=== PATIENT | male | born 1985 | race Two or more races ===

== ENCOUNTER 2017-05-28 10:59 | Emergency (ER) | payer SELFPAY ==
[~2017-05-28] VITALS: Ht 162.6 cm; Wt 63.5 kg
[2017-05-28] MEDS ORDERED: Cephalexin 500mg cap ORAL ONE (11:30)
[2017-05-28] MEDS ORDERED: Norco 5mg/325mg tab ORAL ONE (11:30)
[2017-05-28] MEDS ORDERED: Tetanus/Diptheria/Pertussis Vaccine 0.5ml Syr IM ONE (11:30)
[2017-05-28] MEDS ORDERED: Bacitracin Oint UD TOPIC ONE (12:30)
[2017-05-28] MEDS ORDERED: Lidocaine 1% MPF 10mg/ml 5ml INJ ONE (12:30)
--- NOTE | 2017-05-28 12:46 | Diagnostic Imaging Report ---
Indication: PAIN Technique: 3 views left hand Comparison: none Findings: No acute fractures. No dislocations. Joint spaces are preserved. Impression: Negative
[2017-05-28] MEDS ORDERED: KEFLEX500 MG ORAL (13:14)
[2017-05-28] MEDS ORDERED: IBUPROFEN600 MG ORAL (13:14)
[2017-05-28 13:23] VITALS: BP 122/74
--- NOTE | 2017-05-28 14:55 | Diagnostic Imaging Report ---
Indications:PAIN elbow pain status post trauma Technique: Three or 4 views of the left elbow Comparison: None Findings:No acute fractures. No dislocations. There is a small spur coming off of the coronoid process Impression:No acute process
--- NOTE | 2017-05-30 07:41 | Emergency Room Report ---
History of Present Illness General Chief Complaint: Laceration Source: Patient Present Illness HPI Patient is a 32-year-old male who presented after increased pain to his thumb after laceration. Patient reported falling onto a metal object. He reports having no recent tetanus vaccine. The patient initially reported some left elbow pain. He denied any numbness tingling. Allergies: Coded Allergies: No Known Allergies (Unverified , 05/28/17) Nursing Documentation-[facility] Past Medical History: No Stated History Physical Exam Vital Signs Date Time Temp Pulse Resp B/P (MAP) Pulse Ox O2 Delivery O2 Flow Rate FiO2 05/28/17 11:04 97.5 58 18 106/60 97 Room Air Procedures Laceration/Wound Repair Laceration/Wound Repair : Consent: Verbal Wound Location: upper extremity Wound's Depth, Shape: flap Wound Length (cm): 1 Wound Explored: clean Betadine Prep?: Yes Anesthesia: 1% Lidocaine Volume Anesthetic (ccs): 2 Wound Debrided: minimal Wound Repaired With: sutures Suture Size/Type: 5:0 Number of Sutures: 3 Layer Closure?: No Splint Applied?: Yes Patient Tolerated: Well Complications: None Medical Decision Making Diagnostic Impression: Primary Impression: Laceration ER Course Patient presented for laceration. Differential diagnoses included foreign body , nerve injury, arterial injury among others. Patient's benign exam and does not appear to require any laboratory testing at this time. X-ray imaging of the left hand 3 views interpreted by radiology showed normal bony alignment without evident foreign body or fracture. X-ray left elbow 3 views read by radiologist showed normal bony alignment without evident fracture Patient's wound was irrigated and sutured by physician assistant professor of physics. Last Vital Signs Date Time Temp Pulse Resp B/P (MAP) Pulse Ox O2 Delivery O2 Flow Rate FiO2 05/28/17 13:23 79 18 122/74 99 Room Air 05/28/17 13:23 97.9 Status: improved Disposition: HOME, SELF-CARE Condition: Improved Scripts Ibuprofen* (MOTRIN*) 600 Mg Tablet 600 MG ORAL Q8H Y for For Pain, #30 TAB 0 Refills Prov: Tray Domingo 05/28/17 Cephalexin* (KEFLEX*) 500 Mg Capsule 500 MG ORAL Q6H, #28 CAP 0 Refills Prov: Tray Domingo 05/28/17 Patient Instructions: Laceration Care, Adult Tray Domingo May 30, 2017 07:41
== END 2017-05-28 13:23 | disposition home or self-care (01) ==
LOC: EMR 11:45
DX: S61.012A Laceration without foreign body of left thumb without damage to nail, initial encounter (principal); W19.XXXA Unspecified fall, initial encounter; Y93.9 Activity, unspecified; Y99.9 Unspecified external cause status; Z23 Encounter for immunization
CPT/HCPCS: 90471; 90715; 99284

== ENCOUNTER 2017-08-17 18:58 | Emergency (ER) | payer SELFPAY ==
[~2017-08-17] VITALS: Ht 170.2 cm; Wt 70.3 kg
[~2017-08-17 18:58] MED LIST: IBUPROFEN600 MG ORAL; KEFLEX500 MG ORAL
--- NOTE | 2017-08-17 19:24 | Emergency Room Report ---
History of Present Illness General Chief Complaint: Upper Extremity Injury Source: Patient Present Illness HPI The patient is a 32-year-old male presenting for right arm pain. He states that this has been on-and-off for the past year. He was seen at another facility one month prior and he was told he has radiculopathy. He was given some medications but is unsure of the names. He states that they were unsuccessful for treating the pain. It is said to be an 8/10 dull ache which occasionally starts at the right shoulder and radiates down to the right wrist. Pain is primarily at the right wrist. Worse with movement and touch. She is also noticed some swelling to this area recently. He denies recent injury but does admit to a fracture of the wrist years prior. He denies surgery to the area. He denies any other symptoms including fever, chills, rash, numbness Allergies: Coded Allergies: No Known Allergies (Unverified , 05/28/17) Patient History Past Medical History: see triage record Pertinent Family History: none Reviewed Nursing Documentation: PMH: Agreed, PSxH: Agreed Nursing Documentation-PMH Past Medical History: No Stated History Review of Systems All Other Systems: negative except mentioned in HPI Physical Exam Vital Signs Date Time Temp Pulse Resp B/P (MAP) Pulse Ox O2 Delivery O2 Flow Rate FiO2 08/17/17 19:09 97.9 82 16 116/59 97 Room Air Sp02 EP Interpretation: reviewed, normal General Appearance: no apparent distress, alert, GCS 15, non-toxic Head: normocephalic, atraumatic Eyes: bilateral eye normal inspection, bilateral eye PERRL ENT: hearing grossly normal, normal pharynx, no angioedema, normal voice Musculoskeletal: normal range of motion, tender - R wrist Neurologic: alert, oriented x3, responsive, motor strength/tone normal, sensory intact, speech normal Psychiatric: judgement/insight normal, memory normal, mood/affect normal, no suicidal/homicidal ideation Skin: normal color, no rash, warm/dry, well hydrated Medical Decision Making PA Attestation Dr. Craig is my supervising physician. Patient management was discussed with my supervising physician Diagnostic Impression: Primary Impression: Wrist pain, right Additional Impression: Radiculopathy Qualified Codes: M54.10 - Radiculopathy, site unspecified ER Course The patient is a 32-year-old male presenting for right arm pain Ddx considered include but not limited to radiculopathy, sprain/strain, fracture , contusion PE: NAD Neck is soft and supple. No midline tenderness or step-offs. Full active range of motion intact. Full active range of motion intact at the shoulder and elbow. Right wrist: full AROMI. There is some tenderness to palpation over the ventral aspect. No obvious deformity. Skin is warm and dry Refill less than 2 seconds X-ray of the right wrist unremarkable Cures report shows no prescription in past 6 months The patient will be discharged home with pain medication and needs to followup with his primary doctor Other X-Ray Diagnostic Results Other X-Ray Diagnostic Results : X-Ray ordered: R wrist # of Views/Limited Vs Complete: 3 View Indication: Pain EP Interpretation: Yes PA Xray: Interpretation reviewed, by supervising MD, and agrees with findings. Interpretation: no dislocation, no soft tissue swelling, no fractures Impression: No acute disease Electronically Signed by: Daniel Garner PA-C Last Vital Signs Date Time Temp Pulse Resp B/P (MAP) Pulse Ox O2 Delivery O2 Flow Rate FiO2 08/17/17 19:09 97.9 82 16 116/59 97 Room Air Status: improved Disposition: HOME, SELF-CARE Condition: Improved Scripts Hydrocodone Bit/Acetaminophen 5-325* (NORCO 5-325 TABLET*) 1 Each Tablet 1 TAB ORAL Q6HR Y for For Pain, #10 TAB Prov: DANIEL GARNER P.A. 08/17/17 Ibuprofen* (MOTRIN*) 600 Mg Tablet 600 MG ORAL Q8H Y for For Pain, #30 TAB 0 Refills Prov: DANIEL GARNER P.A. 08/17/17 DANIEL GARNER P.ADori Aug 17, 2017 19:24
[2017-08-17 19:40] VITALS: BP 116/59
[2017-08-17] MEDS ORDERED: IBUPROFEN600 MG ORAL (20:16)
[2017-08-17] MEDS ORDERED: NORCO 5-325 TA1 EAC1 ORAL (20:16)
[2017-08-17 20:29] VITALS: BP 122/64
--- NOTE | 2017-08-20 11:02 | Diagnostic Imaging Report ---
Clinical Indication:PAIN Technique: 3 views of the right wrist Comparison: None Findings: No acute fractures. No dislocations. Ossific density or densities projected adjacent to the ulnar styloid, may represent small foci of heterotopic ossification, unfused ossification centers, or sequela of old injury. There is equivocal slight dorsal soft tissue swelling The joint spaces are preserved Impression: No acute bony trauma
== END 2017-08-17 20:30 | disposition home or self-care (01) ==
LOC: EMR 19:41
DX: M54.10 Radiculopathy, site unspecified (principal); M25.531 Pain in right wrist
CPT/HCPCS: 99283

== ENCOUNTER 2018-03-08 19:37 | Emergency (ER) | payer SELFPAY ==
[~2018-03-08] VITALS: Ht 170.2 cm; Wt 63.5 kg
[~2018-03-08 19:37] MED LIST changes: +NORCO 5-325 TA1 EAC1 ORAL
[2018-03-08] MEDS ORDERED: NKM (20:00)
[2018-03-08 20:21] VITALS: BP 107/68
[2018-03-08] MEDS ORDERED: Methocarbamol 500mg tab ORAL ONE (20:30)
[2018-03-08] MEDS ORDERED: Tylenol #3 tab (300mg/30mg) ORAL ONE (20:30)
[2018-03-08] MEDS ORDERED: ROBAXIN500 MG PO (20:37)
[2018-03-08] MEDS ORDERED: TYLENOL EXTRA500 MG ORAL (20:37)
[2018-03-08] MEDS ORDERED: LIDOCAINE700 M1 TP (20:37)
--- NOTE | 2018-03-08 20:38 | Emergency Room Report ---
History of Present Illness General Chief Complaint: Back Pain-No Injury Source: Patient Present Illness HPI 32-year-old male patient presents to the ER complaining of mid back pain radiating down his arms. Reports symptoms began last night.. Denies history of injury or trauma. 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 reports pain numbness in arms during this time, states it happens intermittently. Reports a history of similar symptoms, has been told that his radiculopathy. Denies fever, chest pain, shortness breath, abdominal pain. Denies pain radiating down back. Denies history of IV drug use. Denies history of kidney stones. Denies dysuria , hematuria, bowel or bladder incontinence. Denies other symptoms. Denies history of stroke. Has not followed up with PCP or specialist for hx of symptoms in the past. Allergies: Coded Allergies: No Known Allergies (Unverified , 05/28/17) Patient History Past Medical History: see triage record Reviewed Nursing Documentation: PMH: Agreed; PSxH: Agreed Nursing Documentation-PMH Past Medical History: No Stated History Review of Systems All Other Systems: negative except mentioned in HPI Physical Exam Vital Signs Date Time Temp Pulse Resp B/P (MAP) Pulse Ox O2 Delivery O2 Flow Rate FiO2 03/08/18 19:57 98.1 80 20 107/68 95 98.1 Sp02 EP Interpretation: reviewed, normal General Appearance: well appearing, no apparent distress, alert, GCS 15, non- toxic Head: normocephalic, atraumatic Eyes: bilateral eye normal inspection, bilateral eye PERRL, bilateral eye EOMI ENT: hearing grossly normal, normal pharynx, no angioedema, normal voice, uvula midline, moist mucus membranes Neck: full range of motion Respiratory: lungs clear, normal breath sounds, no rhonchi, no respiratory distress, no accessory muscle use, no wheezing, speaking full sentences Cardiovascular #1: regular rate, rhythm, no edema Cardiovascular #2: 2+ radial (R), 2+ radial (L) Musculoskeletal: back normal, digits/nails normal, gait/station normal, normal range of motion, non-tender, other - no bony depression, negative adson, able to make fists, tender - lateral thoracic spine Neurologic: alert, oriented x3, responsive, motor strength/tone normal, SLR negative, sensory intact, cerebellar normal, normal gait, speech normal Psychiatric: mood/affect normal Skin: no rash Medical Decision Making PA Attestation Dr. Caldwell is my supervising Physician whom patient management has been discussed with. Diagnostic Impression: Primary Impression: Back pain ER Course Pt presents to ED c/o back pain. DDX considered but are not limited to sprain, strain, cauda equina. Low suspicion for cauda equina, no bowel or bladder incontinence or retention. VITAL SIGNS are WNL, patient is afebrile Ordered medication. ER COURSE: Pain medication provided. Patient requested Vicodin medication, will provide patient with Tylenol #3 in ER for pain. followup with PCP for further pain management. no focal neural deficits, cranial nerves intact as tested, no bony tenderness, able to ambulate independently without difficulty. no spinous process depression, no history of trauma, does not require imaging at this time. 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 Will provide patient with treatment ER. Cures report reviewed. Seen and evaluated by Dr. Caldwell, agrees with treatment and plan. Work note provided. Followup with pain management and/or PT. Request referral from PCP. Followup with PCP for further MRI and/or CT imaging as needed. DISCHARGE: -Rx provided for Tylenol -Rx provided for Lidocaine patch -Rx provided for Robaxin. SE may cause drowsiness, do not take prior to drinking , driving, or operating heavy machinery. At this time pt. is stable for d/c to home. At this time patient is resting comfortably, in no acute distress, nontoxic appearing, smiling and talking without difficulty. Will provide printed patient care instructions, and any necessary prescriptions. Patient instructed to follow with primary care provider for further treatment and referral as needed. Care plan and follow up instructions have been discussed with the patient prior to discharge. Patient reports understanding and agreement to treatment plan. Patient questions asked and answered. ER precautions given, patient instructed to return to ER immediately for any new or worsening of symptoms. - Please note that this Emergency Department Report was dictated using [employer] installer technology software, occasionally this can lead to erroneous entry secondary to interpretation by the dictation equipment. Last Vital Signs Date Time Temp Pulse Resp B/P (MAP) Pulse Ox O2 Delivery O2 Flow Rate FiO2 03/08/18 19:57 98.1 80 20 107/68 95 98.1 Disposition: HOME, SELF-CARE Condition: Stable Scripts Methocarbamol* (ROBAXIN*) 500 Mg Tablet 500 MG PO TID, #21 TAB 0 Refills Prov: Shelton Warren 03/08/18 Acetaminophen* (TYLENOL EXTRA STRENGTH*) 500 Mg Tablet 500 MG ORAL Q8H PRN for Prn Headache/Temp > 101, #30 TAB 0 Refills Prov: Shelton Warren 03/08/18 Lidocaine (Lidocaine) 1 Each Adh..patch 700 MG TP DAILY for 7 Days, #7 PATCH Prov: Shelton Warren 03/08/18 Patient Instructions: Back Pain, Adult Additional Instructions: Patient instructed to follow up with primary care provider 3-5 and discuss further referral and imaging at that time. Patient instructed on rest, ice and heat. Do not take muscle relaxant prior to drinking, driving, or operating heavy machinery. Take medications as directed. Patient questions asked and answered. ER precautions given, patient instructed to return to ER immediately for any new or worsening of symptoms. Shelton Warren Mar 08, 2018 20:38
[2018-03-08 20:48] VITALS: BP 107/68
== END 2018-03-08 20:50 | disposition home or self-care (01) ==
LOC: EMR 20:30
DX: M54.9 Dorsalgia, unspecified (principal); R20.0 Anesthesia of skin
CPT/HCPCS: 99284

== ENCOUNTER 2018-03-25 16:22 | Emergency (ER) | payer SELFPAY ==
[~2018-03-25] VITALS: Ht 170.2 cm; Wt 65.8 kg
[~2018-03-25 16:22] MED LIST changes: +LIDOCAINE700 M1 TP; +NKM; +ROBAXIN500 MG PO; +TYLENOL EXTRA500 MG ORAL
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
[2018-03-25] MEDS ORDERED: IBUPROFEN600 MG ORAL (17:01)
[2018-03-25] MEDS ORDERED: ZANAFLEX4 M1 ORAL (17:01)
[2018-03-25] MEDS ORDERED: LIDODERM700 M1 TOPIC (17:01)
[2018-03-25 17:15] VITALS: BP 102/65
[2018-03-25 17:24] VITALS: BP 102/65
== END 2018-03-25 17:30 | disposition home or self-care (01) ==
LOC: EMR 17:13
DX: M62.830 Muscle spasm of back (principal); S16.1XXA Strain of muscle, fascia and tendon at neck level, initial encounter; V43.52XA Car driver injured in collision with other type car in traffic accident, initial encounter; Y92.410 Unspecified street and highway as the place of occurrence of the external cause
CPT/HCPCS: 99284